=== PATIENT | female | born 1960 | race Caucasian/White ===

== ENCOUNTER → 2016-05-18 | Outpatient (CLI) | payer BC ==
--- NOTE | 2016-05-18 12:35 | US ---
EXAMINATION TYPE: US abd limited kidneys/bladder DATE OF EXAM: 05/18/2016 12:10 PM COMPARISON: NONE CLINICAL HISTORY: R10.2 Groin Pain, N23 Kidney Pain. EXAM MEASUREMENTS: Liver Length: 13.2 cm Gallbladder Wall: 0.2 cm CBD: 0.3cm cm Right Kidney: 10.3 x 5.0 x 5.2 cm Left Kidney: 10.0 x 5.2 x 5.3 cm TECHNOLOGIST IMPRESSION: Morbidly obese patient who has only been NPO 3 1/2 hours, technically diffic ult study. Patient came with an order for right ureter scan. Technologist scanned the patients area o f pain but was unable to see ureter or any abnormality in RLQ at area of pain. Pancreas: Obscured by bowel gas Liver: Increased attenuation Gallbladder: wnl CBD: wnl , not well visualized see above limitations Right Kidney: some possible small parapelvic cysts Left Kidney: some possible small parapelvic cysts Bladder: wnl Bilateral Jets Seen Yes IMPRESSION: 1. Limited examination due to patient body habitus. 2. No suspicious acute changes visualized or in the right lower quadrant at the location of the patie nt's pain.
--- NOTE | 2016-05-18 15:24 | CT ---
EXAMINATION TYPE: CT abdomen pelvis wo con DATE OF EXAM: 05/18/2016 3:06 PM COMPARISON: NONE HISTORY: Rt flank pain, Rt groin pain CT DLP: 1058.8 mGycm Automated exposure control for dose reduction was used. TECHNIQUE: Helical acquisition of images was performed from the lung bases through the pelvis. FINDINGS: LUNG BASES: No significant abnormality is appreciated. LIVER/GB: No significant abnormality is appreciated. PANCREAS: No significant abnormality is seen. SPLEEN: No significant abnormality is seen. ADRENALS: Nonspecific mild thickening left adrenal gland.. KIDNEYS: Mild prominence of the right renal pelvis may be related to parapelvic cysts rather than min imal hydronephrosis. No renal calculi. RETROPERITONEAL ADENOPATHY: None visualized REPRODUCTIVE ORGANS: No significant abnormality is seen URINARY BLADDER: No significant abnormality is seen. PELVIC ADENOPATHY: None visualized. OSSEOUS STRUCTURES: No significant abnormality is seen. BOWEL: Previous lap band surgery noted. OTHER: No free fluid. No free air. IMPRESSION: 1. MILD PROMINENCE OF THE RIGHT COLLECTING SYSTEM MOST LIKELY RELATED TO PARAPELVIC CYSTS. NO DEFINIT E RENAL STONE OR PERINEPHRIC EDEMA. NO HYDROURETER. CORRELATE CLINICALLY. 2. STATUS POST LAP BAND SURGERY.
== END | disposition home or self-care (01) ==
LOC: RADUSWWP 11:24
PROVIDERS: ATTEND Family Medicine
DX: N23 Unspecified renal colic (principal); Z98.84 Bariatric surgery status
CPT/HCPCS: 74176; 76705; 76770

== ENCOUNTER → 2016-12-07 | Outpatient (CLI) | payer BC ==
[2016-12-07 13:14] VITALS: BP 147/86; PULSE 85; RESP 20; TEMP 98.5; BMI 44.0
--- NOTE | 2016-12-07 14:33 | P.HPBAR ---
Bariatric H&P - History & Physicial H&P Date: 12/07/16 History & Physicial: Visit/CC: wants band out Patient initial contact: Initial weight: 113.67 kg Initial weight in pounds: 250.60 Height: 5 ft 3.25 in Initial BMI: 44.0 Last weight: Current weight: 113.67 kg Current weight in pounds: 250.60 Current BMI: 44.0 [place] body weight (based on NIH guidelines): 52.73 kg Excess body weight loss: 0.0% The patient is a 56 year-old F who presents for Bariatric Assessment. Patient here today with complaints of pain at her port site. She also has reflux at times and frequent episodes of dysphagia and vomiting. She underwent her band placement in March 2006. She states that she has not been here to see us in over 7 years. Her heaviest weight preoperatively was 306. Her latest weight postop is 212. Today she is weighing in at 250. Pain seems to be aggravated by laying on the port area. Patient is quite anxious about the band being in her. She would like to lap band removed at this time. Review of Systems The patient denies any acute changes in vision or hearing, no odynophagia, no chest pain or shortness of breath, no dysuria or hematuria, no headache, no runny nose, no rectal bleeding or melena, no unexplained weight loss Past Medical History History of Any Multi-Drug Resistant Organisms: None Reported Smoking Status: Never smoker Surgical - Exam Vital Signs Temp Pulse Resp BP 98.5 F 85 20 147/86 12/07/16 13:08 12/07/16 13:08 12/07/16 13:08 12/07/16 13:08 Physical exam: General: Well-developed, well-nourished HEENT: Normocephalic, sclerae nonicteric Abdomen: Nontender, nondistended Extremities: No edema Neuro: Alert and oriented Bariatric Assessment & Plan (1) GERD (gastroesophageal reflux disease) Narrative/Plan: Patient with reflux, vomiting, abdominal pain. Will empty the patient's lap band at this time. We'll schedule subsequent band removal. Status: Acute Bariatric Checklist Checklist: Plan: Checklist: EGD: 1. Hiatal hernia: 2. H. Pylori: HgbA1c: Vitamin D: Smoking: Never smoker Primary care physician referral: Dr Moreland Psychiatry clearance: Cardiology clearance: Sleep study: Diet journal: VTE risk score: VTE risk level: Rehab needs at discharge:
== END | disposition home or self-care (01) ==
LOC: BARWHC3 12:25
PROVIDERS: ATTEND Surgery
DX: Z01.810 Encounter for preprocedural cardiovascular examination (principal); K21.9 Gastro-esophageal reflux disease without esophagitis
CPT/HCPCS: 99201

== ENCOUNTER 2017-01-05 08:56 | Day surgery (SDC) | payer BC ==
[2017-01-03 13:07] VITALS: BMI 45.1
--- NOTE | 2017-01-05 08:20 | P.HPADDEND ---
H&P Addendum H&P Addendum Date: 01/05/17 Patient here today for laparoscopic band removal. She was last seen in November of this year. No change in her history since that time. Also no change in her physical exam. We'll proceed with laparoscopic lap removal. The bleeding, infection, bowel injury, persistent dysphagia or reflux, weight gain, conversion to an open procedure, or anesthesia-related complications were discussed. She understands and wishes to proceed.
[~2017-01-05 08:56] MED LIST: HYDROmorphone 1 MG/ML 1 ML SYRINGE IVP PRN; LACTATED RINGERS 1,000 ML IV SCH; ceFAZolin 2 GM in SODIUM CHLORIDE 0.9% 100 ML IVPB ONE; fentaNYL (PF) 50 MCG/ML 2 ML AMP IV PRN
[2017-01-05 09:32] VITALS: RESP 18
[2017-01-05] MEDS ORDERED: LIDOCAINE 1% 20 ML VIAL (10MG/ML) FOR IV START INTRADERMA ONE (09:40)
[2017-01-05] MEDS ORDERED: ONDANSETRON 4 MG/2 ML VIAL IVP ONE (09:55)
[2017-01-05] MEDS: HEPARIN SODIUM,PORCINE 5,000 UNIT/ML 1 ML VIAL SQ ONE ×2 (09:56→10:18)
[2017-01-05] MEDS ORDERED: DEXAMETHASONE SOD PHOS (MDV) 100 MG/10 ML VIAL IVP ONE (09:56)
[2017-01-05] MEDS ORDERED: BUPIVACAIN-EPI 0.5%-1:200,000 30 ML VIAL SQ ONE (11:10)
[2017-01-05] MEDS ORDERED: LACTATED RINGERS 1,000 ML IV ONE (11:41)
[2017-01-05] MEDS ORDERED: NALOXONE 0.4 MG/ML 1 ML VIAL IV PRN (11:46)
[2017-01-05] MEDS ORDERED: HYDROcodone/APAP 5-325MG 1 EACH TAB PO PRN (11:46)
--- NOTE | 2017-01-05 11:48 | P.OP ---
Date of Procedure: 01/05/17 Procedure(s) Performed: PREOPERATIVE DIAGNOSIS: Band intolerance/abdominal pain POSTOPERATIVE DIAGNOSIS: Same PROCEDURE: Laparoscopic lap band removal SURGEON: Susan EBL: Minimal ANESTHESIA: General COMPLICATIONS: None OPERATIVE PROCEDURE: The patient was brought and placed on the operating room table in the supine position. The patient was placed under general anesthesia at that time. The patient was then placed in lithotomy. The abdomen was prepped and draped in the usual sterile fashion. The previous port incision was localized and then incised using a scalpel. The port was easily excised using electrocautery. Entrance into the perineal cavity occurred using a 5 mm optical trocar through the old trocar entrance site. Insufflation took place to 15 mmHg. A right subxiphoid 5 mm trocar was placed. This was then removed and the medium Ysabel hook was used to elevate the left lobe of the liver anteriorly. An additional 5 mm trocar was placed under direct visualization in the left lateral upper quadrant. The original 5 mm trocar was switched to a 15 mm trocar. A additional 5 mm trocar was placed in the right upper quadrant under direct dilatation. There were adhesions to the band in the buccal that were lysed using both the LigaSure and electrocautery. The band was then cut using the laparoscopic dre. The band was then removed easily in 2 portions through the 15 mm trocar site. The stomach itself was inspected and revealed no evidence of erosion or prolapse. The trochars were removed. The fascia at the 15 mm site was closed using a [id number] 0 Vicryl stitch. The subcutaneous tissues at the port site was closed using a 3-0 Vicryl suture. The skin at all 4 incision sites were closed using 4-0 Monocryl sutures. Steri- Strips and sterile dressings were then applied. DISPOSITION: Stable to recovery room
[2017-01-05 11:59] VITALS: TEMP 97.4
[2017-01-05] MEDS ORDERED: KETOROLAC 30 MG/ML 1 ML VIAL IVP ONE (12:23)
[2017-01-05 14:00] VITALS: BP 121/71; PULSE 70
== END 2017-01-05 14:27 | disposition home or self-care (01) ==
LOC: OR 08:56
PROVIDERS: ATTEND Surgery
DX: K95.09 Other complications of gastric band procedure (principal); I10 Essential (primary) hypertension; Z79.899 Other long term (current) drug therapy
CPT/HCPCS: 43774; J1644; J0690; J2405; J1885; J1100

== ENCOUNTER → 2017-09-19 | Outpatient (CLI) | payer BC ==
[2017-09-19 11:12] LABS: ALT 33 U/L (9-52); AST 17 U/L (14-36); Albumin 4.2 g/dL (3.5-5.0); Alkaline Phosphatase 85 U/L (38-126); Anion Gap 12 mmol/L; Blood Urea Nitrogen 15 mg/dL (7-17); C Reactive Protein 11.6 mg/L (<10.0); Calcium 9.5 mg/dL (8.4-10.2); Carbon Dioxide 29 mmol/L (22-30); Chloride 102 mmol/L (98-107); Glucose 103 mg/dL (74-99); Potassium 4.7 mmol/L (3.5-5.1); Sodium 143 mmol/L (137-145); Total Bilirubin 0.8 mg/dL (0.2-1.3)
--- NOTE | 2017-09-19 11:56 | US ---
EXAMINATION TYPE: US venous doppler duplex LE DATE OF EXAM: 09/19/2017 11:32 AM COMPARISON: NONE CLINICAL HISTORY: R60.9 Edema,M25.261 R knee pain,M25.572 L foot pain. fall in March and rt knee p ain with left ankle pain and swelling, no h/o dvt SIDE PERFORMED: Bilateral TECHNIQUE: The lower extremity deep venous system is examined utilizing real time linear array sonog [place] with graded compression, doppler sonography and color-flow sonography. VESSELS IMAGED: External Iliac Vein (EIV) Common Femoral Vein Deep Femoral Vein Greater Saphenous Vein * Femoral Vein Popliteal Vein Small Saphenous Vein * Proximal Calf Veins (* superficial vessels) large habitus limits exam. Grayscale, color doppler, spectral doppler imaging performed of the deep veins of the lower extremities. There is normal flow, compressibility, vascular waveforms. Right Leg: Appears negative for DVT Left Leg: Appears negative for DVT scanned anterior lateral left foot at patients complaint and appearance of fluid noted anterior to bone, unsure of etiology. office noted of findings at 1120 IMPRESSION: 1. No sonographic evidence of deep venous arthrosis within either lower extremity. 2. Incidentally noted crescentic area of fluid at the anterior lateral left foot. This is nonspecific and could relate to bursitis, subcutaneous edema, or other etiology. If there is further clinical co ncern MRI could be performed.
--- NOTE | 2017-09-19 12:04 | XR ---
EXAMINATION TYPE: XR foot complete LT DATE OF EXAM: 09/19/2017 CLINICAL HISTORY: Left foot pain and swelling with no known injury. TECHNIQUE: Frontal, lateral, and oblique images of the left foot are obtained. COMPARISON: None FINDINGS: There is no acute fracture/dislocation evident in the left foot. The joint spaces in the left foot appear within normal limits. Subcutaneous edema is mild arthropathy of the generalized left midfoot and lateral forefoot. Osseous mineralization is within normal limits. No radiopaque foreign body. Small Achilles and plantar enthesophytes are noted. IMPRESSION: Nonspecific mild soft tissue swelling of the midfoot and lateral forefoot with no acute f racture or dislocation in the left foot.
--- NOTE | 2017-09-19 12:07 | XR ---
EXAMINATION TYPE: XR ankle complete LT DATE OF EXAM: 09/19/2017 CLINICAL HISTORY: Left ankle pain and swelling with no known injury TECHNIQUE: Frontal, lateral and oblique images of the left ankle are obtained. COMPARISON: None. FINDINGS: There is no acute fracture/dislocation evident in the left ankle. The ankle mortise appea rs within normal limits. There is mild soft tissue swelling over the medial malleolus. There are smal l Achilles and plantar enthesophyte/heel spurs present. No radiopaque foreign body. Osseous mineraliz ation is within normal limits. IMPRESSION: Mild soft tissue swelling over the medial malleolus with no acute fracture or dislocation in the left ankle. Small Achilles and plantar enthesophytes.
== END | disposition home or self-care (01) ==
LOC: RADUSWWP 10:17
PROVIDERS: ATTEND Family Medicine
DX: M79.89 Other specified soft tissue disorders (principal); M25.572 Pain in left ankle and joints of left foot; M77.9 Enthesopathy, unspecified; M25.475 Effusion, left foot; I10 Essential (primary) hypertension; R63.5 Abnormal weight gain
CPT/HCPCS: 36415; 80053; 83880; 85652; 86038; 86140; 93005; 93970

== ENCOUNTER → 2017-10-04 | Outpatient (CLI) | payer BC ==
--- NOTE | 2017-10-04 14:51 | US ---
EXAMINATION TYPE: US bladder DATE OF EXAM: 10/04/2017 COMPARISON: CT abdomen pelvis May 18, 2016 CLINICAL HISTORY: N32.81 Overactive bladder, R39.9 Unspecified. EXAM MEASUREMENTS: Post Void Residual Volume: 0 mL Color Doppler performed to assess ureteral jets. Bilateral Jets seen: yes Normal Post Void Residual (less than 50ml): yes, no residual seen. Bladder is not greatly distended without abnormal intraluminal mass or wall thickening. Patient is ab le to completely empty bladder on voiding. IMPRESSION: Unremarkable study.
--- NOTE | 2017-10-04 14:55 | US ---
EXAMINATION TYPE: US transvaginal DATE OF EXAM: 10/04/2017 COMPARISON: CT abdomen and pelvis May 18, 2016 CLINICAL HISTORY: N32.81 Overactive bladder, R39.9 Unspecified. TECHNIQUE: Transvaginal (TV). Date of LMP: post menopausal EXAM MEASUREMENTS: Uterus: 6.4 x 3.1 x 5.1 cm Endometrial Stripe: 0.5 cm Right Ovary: not definitely identified Left Ovary: not definitely identified 1. Uterus: Anteverted heterogeneous echtexture 2. Endometrium: wnl 3. Right Ovary: not definitely identified 4. Left Ovary: not definitely identified 5. Bilateral Adnexa: complex area measures 3.7 x 1.9 x 2.9 cm in rt adnexa, no flow detected. Unsur e etiology. 6. Posterior cul-de-sac: no free fluid Heterogeneous anteverted uterus is present. There is abnormal multiseptated oval right adnexal lesion new from CT where normal size ovaries are present. There are septations with slight nodularity and s lightly thickened septa identified. No vascularity is evident. IMPRESSION: A 3.7 cm complex cystic lesion right ovary is abnormal finding in postmenopausal female. Neoplasm cannot be excluded. Advise gynecology oncology referral and tumor lab markers correlation. C onsider pelvic MRI to further evaluate and characterize.
--- NOTE | 2017-10-05 12:41 | ECHOF ---
Referral Reason:R60.9 Edema MEASUREMENTS -------- HEIGHT: 160.0 cm WEIGHT: 140.6 kg BP: 171/90 RVIDd: 2.8 cm (< 3.3) IVSd: 0.9 cm (0.6 - 1.1) LVIDd: 4.2 cm (3.9 - 5.3) LVPWd: 1.1 cm (0.6 - 1.1) IVSs: 1.6 cm LVIDs: 2.6 cm LVPWs: 1.4 cm LA Diam: 3.2 cm (2.7 - 3.8) LAESV Index (A-L): 14.16 ml/m Ao Diam: 3.0 cm (2.0 - 3.7) AV Cusp: 2.0 cm (1.5 - 2.6) MV EXCURSION: 15.618 mm (> 18.000) MV EF SLOPE: 44 mm/s (70 - 150) EPSS: 0.7 cm MV E Fernando: 0.64 m/s MV DecT: 261 ms MV A Fernando: 1.03 m/s MV E/A Ratio: 0.62 RAP: 5.00 mmHg RVSP: 27.00 mmHg FINDINGS -------- Sinus rhythm. This was a technically adequate study. The left ventricular size is normal. There is borderline concentric left ventricular hypertrophy. Overall left ventricular systolic function is normal with, an EF between 60 - 65 %. The right ventricle is normal in size. Normal LA size by volume 22+/-6 ml/m2. The right atrium is normal in size. The aortic valve is trileaflet and appears structurally normal. The mitral valve leaflets are mildly thickened. Mild tricuspid regurgitation present. Right ventricular systolic pressure is normal at < 35 mmHg. There is no pulmonic regurgitation present. The aortic root size is normal. Normal inferior vena cava with normal inspiratory collapse consistent with estimated right atrial pre ssure of 5 mmHg. There is no pericardial effusion. CONCLUSIONS -------- 1. Sinus rhythm. 2. This was a technically adequate study. 3. The left ventricular size is normal. 4. There is borderline concentric left ventricular hypertrophy. 5. Overall left ventricular systolic function is normal with, an EF between 60 - 65 %. 6. The right ventricle is normal in size. 7. Normal LA size by volume 22+/-6 ml/m2. 8. The right atrium is normal in size. 9. The aortic valve is trileaflet and appears structurally normal. 10. The mitral valve leaflets are mildly thickened. 11. Mild tricuspid regurgitation present. 12. Right ventricular systolic pressure is normal at < 35 mmHg. 13. There is no pulmonic regurgitation present. 14. The aortic root size is normal. 15. Normal inferior vena cava with normal inspiratory collapse consistent with estimated right atrial pressure of 5 mmHg. 16. There is no pericardial effusion. CLERICAL AIDE: Analy Da Silva RDCS
== END | disposition home or self-care (01) ==
LOC: RADUSWWP 13:22
PROVIDERS: ATTEND Family Medicine
DX: I08.1 Rheumatic disorders of both mitral and tricuspid valves (principal); N83.201 Unspecified ovarian cyst, right side; N32.81 Overactive bladder; R39.9 Unspecified symptoms and signs involving the genitourinary system; R63.5 Abnormal weight gain; Z78.0 Asymptomatic menopausal state
CPT/HCPCS: 76830; 76857; 93306

== ENCOUNTER → 2017-10-20 | Outpatient (CLI) | payer BC | END | disposition home or self-care (01) | LOC: RADMRIMAIN 20:03 | PROVIDERS: ATTEND Nurse Practitioner | DX: Z53.9 Procedure and treatment not carried out, unspecified reason (principal) ==